=== PATIENT | male | born 1950 | race Caucasian/White ===

== ENCOUNTER 2021-03-30 13:45 | Emergency (ER) | payer MEDICARE ==
[~2021-03-30] VITALS: Ht 177.8 cm; Wt 101.6 kg
[2021-03-30] MEDS ORDERED: ALLOPURINOL 10100 M2 PO (14:04)
[2021-03-30] MEDS ORDERED: LOSARTAN-HCTZ1 EAC3 PO (14:04)
[2021-03-30] MEDS ORDERED: GLIPIZIDE 10 MG10 MG PO (14:05)
[2021-03-30] MEDS ORDERED: FUROSEMIDE 20 M20 MG PO (14:05)
[2021-03-30] MEDS ORDERED: CATAPRES-TTS 20.2 MG PO (14:05)
[2021-03-30] MEDS ORDERED: CARDURA8 MG PO (14:06)
[2021-03-30] MEDS ORDERED: LIPITOR 20 MG T20 M1 PO (14:06)
[2021-03-30] MEDS ORDERED: HUMALOG100 UNIT/1 SUBQ (14:06)
[2021-03-30] MEDS ORDERED: CARVEDILOL25 MG PO (14:06)
[2021-03-30] MEDS ORDERED: HYDRALAZINE 2525 MG PO (14:07)
[2021-03-30 14:08] LABS: ABSOLUTE BASOPHILS 0.1 thou/uL (0.0-0.2); ABSOLUTE EOSINOPHILS 0.1 thou/uL (0.0-0.7); ABSOLUTE LYMPHOCYTES 1.8 thou/uL (0.8-5.3); ABSOLUTE MONOCYTES 0.7 thou/uL (0.0-1.2); BASOPHILS 0.9 %; EOSINOPHILS 0.6 %; HEMATOCRIT 45.6 % (42.0-52.0); HEMOGLOBIN 15.5 gm/dL (14.0-18.0); LYMPHOCYTES 20.8 %; MCH 28.8 pg (26.0-34.0); MCV 84.8 fL (80.0-100.0); MONOCYTES 7.9 %; MPV 9.2 fl. (7.2-11.1); NUCLEATED RBCS 0 /100WBC; PLATELET COUNT* 107 thou/uL (150-400); POLYS 69.8 %; RBC 5.38 mil/uL (4.50-6.00); RDW-CV 14.5 % (10.5-14.5); WBC 8.6 thou/uL (4.0-11.0)
[2021-03-30 14:18] LABS: CALCIUM 9.2 mg/dL (8.5-10.1); CREATININE 2.9 mg/dL (0.6-1.3); POTASSIUM 4.6 mmol/L (3.5-5.1)
[2021-03-30 14:28] LABS: ALBUMIN 3.9 g/dL (3.4-5.0); MAGNESIUM 2.2 mg/dL (1.8-2.4); TOTAL BILIRUBIN 0.9 mg/dL (<0.1-1.0); TOTAL PROTEIN 7.8 g/dL (6.4-8.2)
[2021-03-30 15:27] VITALS: BP 161/84
--- NOTE | 2021-03-31 10:55 | EKG ---
[place] [address] ELECTROCARDIOGRAM REPORT Name: SAJI ALBERTS Room: 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
== END 2021-03-30 15:29 | disposition home or self-care (01) ==
LOC: M.ERS 13:45
PROVIDERS: Emergency Medicine Emergency Medical Services
DX: I10 Essential (primary) hypertension (principal)

== ENCOUNTER → 2021-05-27 | Outpatient (CLI) | payer MEDICARE ==
[~2021-05-27] MED LIST: ALLOPURINOL 10100 M2 PO; CARDURA8 MG PO; CARVEDILOL25 MG PO; CATAPRES-TTS 20.2 MG PO; FUROSEMIDE 20 M20 MG PO; GLIPIZIDE 10 MG10 MG PO; HUMALOG100 UNIT/1 SUBQ; HYDRALAZINE 2525 MG PO; LIPITOR 20 MG T20 M1 PO; LOSARTAN-HCTZ1 EAC3 PO
--- NOTE | 2021-05-27 11:53 | 2DMMODE ---
[place] [address] 2 D/M-MODE ECHOCARDIOGRAM Name: SAJI ALBERTS Room: [facility]#: [id number] Admission: 05/27/21 Attend Phys: Yumi Pittman, Discharge: Date of : 46 Date of Service: 05/27/21 1153 Report #: [id number] THIS REPORT FOR: cc: Long Malik MD, Tuongvan T. MD [place], John M. MD [facility] ~ APPROVED REPORT Study performed: 05/27/2021 08:48:26 EXAM: Comprehensive 2D, Doppler, and color-flow Echocardiogram Patient Location: Out-Patient BSA: 2.21 HR: 60 bpm BP: 127/60 mmHg Other Information Study Quality: Good Indications Hypertension/HDD 2D Dimensions IVSd: 12.69 (7-11mm) LVOT Diam: 20.32 (18-24mm) LVDd: 52.26 mm PWd: 11.38 (7-11mm) Ascending Ao: 29.82 (22-36mm) LVDs: 34.00 (25-40mm) Aortic Root: 32.22 mm Volumes Left Atrial Volume (Systole) LA ESV Index: 29.10 mL/m2 Aortic Valve AoV Peak Ajit.: 1.33 m/s AO Peak Gr.: 7.06 mmHg LVOT Max P.14 mmHg AO Mean Gr.: 3.68 mmHg LVOT Mean P.70 mmHg LVOT Max V: 0.89 m/s AO V2 VTI: 28.35 cm LVOT Mean V: 0.60 m/s HAVEN (VTI): 2.51 cm2 LVOT V1 VTI: 21.92 cm Mitral Valve E/A Ratio: 0.89 [place] [address] 2 D/M-MODE ECHOCARDIOGRAM Name: SAJI ALBERTS Room: [facility]#: [id number] Admission: 05/27/21 Attend Phys: Yumi Pittman, Discharge: Date of : 46 Date of Service: 05/27/21 1153 Report #: [id number] MV Decel. Time: 163.68 ms MV E Max Ajit.: 0.79 m/s MV PHT: 47.47 ms MVA (PHT): 4.63 cm2 TDI E/Lateral E': 7.90 E/Medial E': 8.78 Medial E' Ajit.: 0.09 m/s Lateral E' Ajit.: 0.10 m/s Pulmonary Valve PV Peak Ajit.: 1.23 m/s PV Peak Gr.: 6.10 mmHg Tricuspid Valve RAP Estimate: 5.00 mmHg TR Peak Gr.: 29.45 mmHg RVSP: 34.45 mmHg PA Pressure: 34.45 mmHg Left Ventricle The left ventricle is normal size. There is normal LV segmental wall motion. There is normal left ventricular wall thickness. Left ventricular systolic function is normal. The left ventricular ejection fraction is within the normal range. LVEF is 55-60%. The left ventricular diastolic function is normal. Right Ventricle The right ventricle is normal size. The right ventricular systolic function is normal. Atria The left atrium size is normal. The right atrium size is normal. Aortic Valve The aortic valve is normal in structure. No aortic regurgitation is present. There is no aortic valvular stenosis. Mitral Valve The mitral valve is normal in structure. Mild mitral regurgitation. No evidence of mitral valve stenosis. Tricuspid Valve The tricuspid valve is normal in structure. Mild tricuspid regurgitation[place] [address] 2 D/M-MODE ECHOCARDIOGRAM Name: SAJI ALBERTS Room: [facility]#: [id number] Admission: 05/27/21 Attend Phys: Yumi Pittman, Discharge: Date of : 46 Date of Service: 05/27/21 1153 Report #: [id number] The pulmonary valve is normal in structure. Mild pulmonic regurgitation. Great Vessels The aortic root is normal in size. IVC is normal in size and collapses >50% with inspiration. Pericardium There is no pericardial effusion. <Conclusion> The left ventricle is normal size. There is normal left ventricular wall thickness. Left ventricular systolic function is normal. The left ventricular ejection fraction is within the normal range. LVEF is 55-60%. The left ventricular diastolic function is normal. The right ventricle is normal size. The left atrium size is normal. The aortic valve is normal in structure. The mitral valve is normal in structure. Mild mitral regurgitation. The tricuspid valve is normal in structure. Mild tricuspid regurgitation. IVC is normal in size and collapses >50% with inspiration. There is no pericardial effusion. There is normal LV segmental wall motion. <ELECTRONICALLY SIGNED> By: Johnson Woods MD, FACC 05/27/21 1153 1153 1153 Johnson Woods MD, FACC /INF
== END ==
LOC: M.CRD 08:39
PROVIDERS: ATTEND Nurse Practitioner
DX: I08.8 Other rheumatic multiple valve diseases (principal); I10 Essential (primary) hypertension